=== PATIENT | female | born 1965 | race Caucasian/White ===

== ENCOUNTER 2018-08-15 10:03 | Emergency (ER) | payer OTHER ==
[2018-08-15 10:07] VITALS: TEMP 98
--- NOTE | 2018-08-15 10:21 | ED ---
Lower Extremity Injury HPI - General Chief Complaint: Extremity Injury, Lower Stated Complaint: knee pain Time Seen by Provider: 08/15/18 10:08 Source: patient, RN notes reviewed, old records reviewed Mode of arrival: ambulatory Limitations: no limitations - History of Present Illness Initial Comments: Patient is a 52-year-old female presents emergency department today with left knee pain. She reports it locked up on her today when she was getting into bed. Patient states that she's had problems with her left knee for over 20 years. She's not seeing orthopedic or had an MRI or imaging. Patient states that occasionally he will walk up and she can easily get it back in straight without difficulty. Patient states it feels that her knees and pain when the knee is flexed. She states she is unable to fully straighten her leg at this time. Patient states that she has normal sensation distally full range of motion of the toes and ankle. - Related Data Home Medications Medication Instructions Recorded Confirmed Thyroid,Pork [Nature-Throid] 97.5 mg PO DAILY 08/15/18 08/15/18 Previous Rx's Medication Instructions Recorded Ibuprofen 600 mg PO TID #30 tablet 08/15/18 Allergies Allergy/AdvReac Type Severity Reaction Status Date / Time venom-honey bee Allergy Unknown Swelling, Verified 08/15/18 10:24 [bee venom (honey bee)] Hives Review of Systems ROS Statement: Those systems with pertinent positive or pertinent negative responses have been documented in the HPI. ROS Other: All systems not noted in ROS Statement are negative. Past Medical History Past Medical History: Thyroid Disorder Additional Past Medical History / Comment(s): LEFT SHOULDER AND UPPER ARM PAIN. Knee issues History of Any Multi-Drug Resistant Organisms: None Reported Past Surgical History: Orthopedic Surgery Additional Past Surgical History / Comment(s): 01/01/15 LEFT ROTATOR CUFF. Past Anesthesia/Blood Transfusion Reactions: No Reported Reaction Additional Past Anesthesia/Blood Transfusion Reaction / Comment(s): PT HAS NEVER RECEIVED ANESTHESIA. Past Psychological History: No Psychological Hx Reported Smoking Status: Never smoker Past Alcohol Use History: Occasional Past Drug Use History: None Reported - Past Family History Mother Family Medical History: Cancer Additional Family Medical History / Comment(s): PANCREATIC CANCER General Exam - General Exam Comments Initial Comments: 52-year-old female. Alert and oriented 3. No distress. Limitations: no limitations General appearance: alert, in no apparent distress Head exam: Present: atraumatic Eye exam: Present: normal appearance, PERRL, EOMI. Absent: scleral icterus, conjunctival injection, periorbital swelling ENT exam: Present: normal exam, mucous membranes moist Neck exam: Present: normal inspection. Absent: tenderness, meningismus, lymphadenopathy Respiratory exam: Present: normal lung sounds bilaterally. Absent: respiratory distress, wheezes, rales, rhonchi, stridor Cardiovascular Exam: Present: regular rate, normal rhythm, normal heart sounds. Absent: systolic murmur, diastolic murmur, rubs, gallop, clicks GI/Abdominal exam: Present: soft, normal bowel sounds. Absent: distended, tenderness, guarding, rebound, rigid Extremities exam: Present: normal inspection, full ROM, normal capillary refill. Absent: tenderness, pedal edema, joint swelling, calf tenderness Left Upper Leg exam: Present: normal inspection, full ROM Knee exam: Present: normal inspection, tenderness (Review the medial aspect of the knee.). Absent: full ROM ( and unable to fully extend the leg.), ecchymosis Lower Leg exam: Present: normal inspection, full ROM Ankle exam: Present: normal inspection, full ROM Foot/Toe exam: Present: normal inspection, full ROM Back exam: Present: normal inspection Neurological exam: Present: alert, oriented X3, CN II-XII intact Psychiatric exam: Present: normal affect, normal mood Skin exam: Present: warm Course Vital Signs 08/15/18 10:05 Temperature 98 F Pulse Rate 119 H Respiratory 20 Rate Blood Pressure 141/79 O2 Sat by Pulse 99 Oximetry Procedures - Orthopedic Splinting/Casting Injury #1 Side: left Lower Extremity Injury Location: knee Lower Extremity Immobilizer: knee immobilizer Medical Decision Making - Medical Decision Making 52-year-old female presents to ED left knee pain, Patient states that she feels like she is unable to fully extend the leg. Feels like it locked up. No significant trauma. Symptoms started when she got in to bed yesterday. At this time x-rays negative for any acute process. Patient was given IM pain medication and by mouth pain pill. Patient informed that she is follow-up with orthopedic. Concern for possible meniscal tear with floating piece within the knee joint causing the need to lock up. Patient was placed in knee immobilizer given prescription for crutches. Discussed appropriate follow-up with fourth toe. All questions answered return parameters were discussed. - Radiology Data Radiology results: report reviewed No significant abnormalities evident. The MRI may be of benefit. No significant joint effusion noted. Disposition Clinical Impression: Locking knee, Left medial knee pain Disposition: HOME SELF-CARE Condition: Good Instructions (If sedation given, give patient instructions): Knee Pain (ED) Additional Instructions: Patient advised to follow-up with primary care physician and orthopedic for possible MRI and possible injections to the joint. Patient should return to emergency department if any alarming signs or symptoms occur. Take antiinflammatories medicine, and ambulate with a knee immobilizer. Patient should return to the emergency department if any alarming signs or symptoms occur. Prescriptions: Ibuprofen 600 mg PO TID #30 tablet Is patient prescribed a controlled substance at d/c from ED?: No Referrals: Roberto Barroso DO [Primary Care Provider] - 1-2 days Haim Pelayo DO [Medical Doctor] - 1-2 days Stas Roberts MD [STAFF PHYSICIAN] - 1-2 days Time of Disposition: 11:34
--- NOTE | 2018-08-15 10:50 | XR ---
Left knee HISTORY: Left knee pain 3 views of the left knee Bone mineralization, joint spaces and alignment are maintained. There is overlying artifact. No evide nt joint effusion. IMPRESSION: No significant abnormality is evident. Knee MRI may be of benefit.
[2018-08-15] MEDS ORDERED: HYDROcodone/APAP 5-325MG 1 EACH TAB PO STA (11:30)
[2018-08-15] MEDS ORDERED: KETOROLAC 30 MG/ML 1 ML VIAL IM STA (11:30)
[2018-08-15] MEDS ORDERED: ACET/COD 300 MG/30 MG STARTER PACK 6 TAB BTL PO STA (11:36)
[2018-08-15 12:53] VITALS: BP 121/70; PULSE 78; RESP 18
== END 2018-08-15 12:54 | disposition home or self-care (01) ==
LOC: EC 10:03
DX: M23.92 Unspecified internal derangement of left knee (principal); M25.562 Pain in left knee; E07.9 Disorder of thyroid, unspecified; Z79.899 Other long term (current) drug therapy; Z91.030 Bee allergy status; Z53.29 Procedure and treatment not carried out because of patient's decision for other reasons
CPT/HCPCS: 73562; 99284; 96372; J1885

== ENCOUNTER → 2018-08-27 | Outpatient (CLI) | payer OTHER ==
--- NOTE | 2018-08-27 10:23 | MR ---
EXAMINATION TYPE: MR knee LT wo con DATE OF EXAM: 08/27/2018 COMPARISON: Plain film 08/15/2017 HISTORY: L knee pain TECHNIQUE: Multiplanar, multisequence imaging of the left knee is performed without IV contrast. FINDINGS: MEDIAL MENISCUS: There is some linear increased signal in the posterior horn of the medial meniscus i s thought to extend to the articular surface, sagittal image 22, coronal image #20 LATERAL MENISCUS: Some linear increased signal within the posterior horn of the lateral meniscus exte nds the articular surface seen on sagittal image 12, coronal image 19 CRUCIATE LIGAMENTS: Anterior cruciate fibers are not seen. Posterior cruciate ligament is thought to be intact but shows some increased signal within the tendon substance possibly due to strain or parti al tear COLLATERAL LIGAMENTS: There is some fluid signal along the lateral patellar retinaculum, lateral rafia ateral ligament complex, iliotibial band possibly due to strain. EXTENSOR MECHANISM: Visualized quadriceps and patellar tendons are intact. EFFUSION: Minimal joint effusion POPLITEAL CYST: No popliteal/eng cyst. TRICOMPARTMENT SPACES: Maintained CARTILAGE: Intact BONE MARROW SIGNAL: No focal abnormal marrow signal is appreciated. OTHER: Some fluid signal present at the level of the soft tissues anterior to the insertion of the p atellar tendon, there is some subcutaneous edema present also posteriorly IMPRESSION: Findings compatible with tears of the posterior horns of the medial and lateral menisci. Probable con genital absence of the anterior cruciate ligament. Additional findings above.
== END | disposition home or self-care (01) ==
LOC: RADMRIMAIN 08:07
PROVIDERS: ATTEND Orthopaedic Surgery
DX: M25.462 Effusion, left knee (principal)

== ENCOUNTER → 2021-01-13 | Outpatient (CLI) | payer OTHER ==
--- NOTE | 2021-01-13 11:11 | US ---
EXAMINATION TYPE: US venous doppler duplex LE LT DATE OF EXAM: 01/13/2021 10:55 AM COMPARISON: NONE CLINICAL HISTORY: M25.562 pain in limb. Pt states left leg pain s/p left knee pain SIDE PERFORMED: Left TECHNIQUE: The lower extremity deep venous system is examined utilizing real time linear array sonog pricilla with graded compression, doppler sonography and color-flow sonography. VESSELS IMAGED: Common Femoral Vein Deep Femoral Vein Greater Saphenous Vein * Femoral Vein Popliteal Vein Small Saphenous Vein * Proximal Calf Veins (* superficial vessels) Left Leg: Negative for DVT Results called to Angelica at Dr's office at time of exam Grayscale, color doppler, spectral doppler imaging performed of the deep veins of the left lower extr emity. There is normal flow, compressibility, vascular waveforms. IMPRESSION: No ultrasound evidence for acute DVT in the left lower extremity.
== END | disposition home or self-care (01) ==
LOC: RADUSWWP 10:11
PROVIDERS: ATTEND Orthopaedic Surgery
DX: M79.605 Pain in left leg (principal); M25.562 Pain in left knee

== ENCOUNTER → 2021-03-14 | Outpatient (CLI) | payer OTHER ==
--- NOTE | 2021-03-21 10:46 | MM ---
Reason for exam: screening (asymptomatic). History: Patient is postmenopausal. Family history of breast cancer in maternal aunt. Taking progesterone beginning at age 50. Physical Findings: A clinical breast exam by your physician is recommended on an annual basis and results should be correlated with mammographic findings. MG 3D Screening Mammo W/Cad Bilateral CC and MLO view(s) were taken. No prior studies available for comparison. The breast tissue is extremely dense which could obscure a lesion on mammography. There is no discrete abnormality. ASSESSMENT: Negative, BI-RAD 1 RECOMMENDATION: Routine screening mammogram of both breasts in 1 year.
== END | disposition home or self-care (01) ==
LOC: RADMAMWWP 07:59
PROVIDERS: ATTEND Family Medicine
DX: Z12.31 Encounter for screening mammogram for malignant neoplasm of breast (principal); Z78.0 Asymptomatic menopausal state; Z80.3 Family history of malignant neoplasm of breast
CPT/HCPCS: 77063; 77067